=== PATIENT | male | born 2000 | race Caucasian/White ===

== ENCOUNTER 2022-07-14 09:10 | Emergency (ER) | payer SELFPAY ==
[2022-07-14 09:36] LABS: Absolute Lymphocytes (CBC) 2.8 K/uL (0.7-4.9); Hematocrit 39.3 % (39.6-49.0); MCV 94.1 fL (80-100); MPV 6.7 fL (7.6-11.3); RBC Red Blood Cell Count 4.18 M/uL (4.33-5.43)
[2022-07-14] MEDS ORDERED: MORPHINE 4 MG/ML SYR ONE (09:39)
[2022-07-14] MEDS ORDERED: ONDANSETRON 4 MG/2 ML VIAL ONE (09:40)
[2022-07-14] MEDS ORDERED: NA CHLORIDE 0.9% 1,000 ML ONE (09:40)
[2022-07-14 09:56] LABS: Albumin 3.8 g/dL (3.4-5.0); Bilirubin Total 0.3 mg/dL (0.2-1.0); Potassium 3.9 mmol/L (3.5-5.1); Protein, Total 7.3 g/dL (6.4-8.2)
--- NOTE | 2022-07-14 10:22 | RAD REPORT ---
EXAM DESCRIPTION: CTStone Protocol - 07/14/2022 9:38 am CLINICAL HISTORY: r/o renal stone COMPARISON: No comparisons TECHNIQUE: CT of the abdomen and pelvis was performed without contrast. All CT scans are performed using dose optimization technique as appropriate and may include automated exposure control or mA/KV adjustment according to patient size. FINDINGS: Lower chest: No acute abnormality. Liver: No acute abnormality or suspicious lesions. Biliary: No biliary ductal dilatation. Stomach: No significant focal abnormality. Duodenum: No significant focal abnormality. Pancreas: No significant abnormality. Spleen: No significant abnormality. Adrenal: No suspicious lesions. Kidney/ureter: No hydronephrosis. Punctate bilateral renal calculi and/or renal papillary type calcif ications. Mildly dense renal pyramids noted. Right ureteral fullness. Retroperitoneum: No retroperitoneal adenopathy. Vascular: No aneurysm. Bowel: The appendix is not visualized in its entirety. The imaged portions are normal.. Peritoneum: Small volume of free fluid is noted. Bladder: Grossly unremarkable. Reproductive: No adnexal masses. Bones: No acute fracture. Other: n/a IMPRESSION: 1. Nonobstructing punctate bilateral renal calculi. Right ureteral fullness could be sec ondary to either infection or recently passed stone. 2. Appendix only partially visualized but the visualized portion is within normal limits. Though a sm all volume of pelvic free fluid is noted which is abnormal in a male patient, no other findings are p resent to suggest acute appendicitis.
[2022-07-14 10:54] LABS: Urine Blood 3+ (Negative); Urine Glucose Negative (Negative); Urine Protein 2+ (Negative)
[2022-07-14] MEDS ORDERED: CEFTRIAXONE 1000 MG/VIAL ONE (11:17)
[2022-07-14] MEDS ORDERED: NA CHLORIDE 0.9% 100 ML ONE (11:17)
--- NOTE | 2022-07-14 11:17 | ER ---
Nurse's Notes [facility] Name: Horace Smith Age: 21 yrs Sex: Male : 2000 Arrival Date: 07/14/2022 Time: 09:11 Bed 19 Private MD: Diagnosis: Pyelonephritis acute Presentation: 07/14 09:19 Chief complaint: Patient states: Right flank pain that began yesterday, reports blood aa5 in urine today. Denies nausea/vomiting. Coronavirus screen: At this time, the client does not indicate any symptoms associated with coronavirus-19. Ebola Screen: Patient denies travel to an Ebola-affected area in the 21 days before illness onset. Initial Sepsis Screen: Does the patient meet any 2 criteria? No. Patient's initial sepsis screen is negative. Does the patient have a suspected source of infection? No. Patient's initial sepsis screen is negative. Risk Assessment: Do you want to hurt yourself or someone else? Patient reports no desire to harm self or others. Onset of symptoms was June 2022. 09:19 Method Of Arrival: Ambulatory aa5 09:19 Acuity: KATIE 3 aa5 Historical: - Allergies: 09:20 No Known Allergies; aa5 - PMHx: 09:20 None; aa5 - PSHx: 09:20 None; aa5 - Immunization history:: Adult Immunizations unknown. - Social history:: Smoking status: Patient reports the use of cigarette tobacco products, denies chronic smoking, but will smoke occasionally. Screenin:30 Abuse screen: Denies threats or abuse. jh6 09:30 Nutritional screening: No deficits noted. Tuberculosis screening: No symptoms or risk jh6 factors identified. Fall Risk None identified. Assessment: 09:32 General: Appears uncomfortable, Behavior is calm, cooperative. Pain: Complains of pain jh6 in anterior aspect of right lateral abdomen and right upper quadrant Pain does not radiate. Pain currently is 6 out of 10 on a pain scale. Quality of pain is described as aching, sharp, Pain began suddenly, Is continuous. GI: Bowel sounds Abd is soft X 4 quads. 10:30 Reassessment: Patient and/or family updated on plan of care and expected duration. Pain jh6 level reassessed. Patient is alert, oriented x 3, equal unlabored respirations, skin warm/dry/pink. Patient states feeling better. Pain: Pain currently is 2 out of 10 on a pain scale. 11:36 Reassessment: Patient and/or family updated on plan of care and expected duration. Pain jh6 level reassessed. Patient is alert, oriented x 3, equal unlabored respirations, skin warm/dry/pink. Patient denies pain at this time. Patient states feeling better. Vital Signs: 09:19 BP 102 / 85; Pulse 74; Resp 18 S; Temp 99.3(TE); Pulse Ox 100% on R/A; Height 5 ft. 5 aa5 in. (165.10 cm) (R); 09:24 Weight 56.02 kg (M); mb9 10:30 BP 108 / 64; Pulse 77; Resp 17; Pulse Ox 100% ; Pain 2/10; jh6 11:34 BP 110 / 78; Pulse 76; Resp 17; Pulse Ox 99% ; Pain 0/10; jh6 09:24 Body Mass Index 20.55 (56.02 kg, 165.10 cm) mb9 ED Course: 09:11 Patient arrived in ED. am2 09:16 [facility] jh7 09:16 Dayron Simmons MD is Attending Physician. jh7 09:19 Arm band placed on. aa5 09:20 Triage completed. aa5 09:25 Jennifer Arriaga, RN is Primary Nurse. jh6 09:25 Bed in low position. Call light in reach. Side rails up X 1. mb9 09:32 No provider procedures requiring assistance completed. Inserted saline lock: 20 gauge 6 in left antecubital area, using aseptic technique. Blood collected. 09:[address] via wheelchair. jh6 09:40 CT Stone Protocol In Process Unspecified. EDMS 11:30 IV discontinued, intact, bleeding controlled, No redness/swelling at site. Pressure jh6 dressing applied. Administered Medications: 09:44 Drug: NS 0.9% 1000 ml Route: IV; Rate: 1 bolus; Site: right antecubital; jh6 10:49 Follow up: Response: No adverse reaction; IV Status: Completed infusion jh6 09:44 Drug: Zofran (Ondansetron) 4 mg Route: IVP; Site: right antecubital; jh6 10:49 Follow up: Response: No adverse reaction; No change in condition [facility] 09:44 Drug: morphine 4 mg Route: IVP; Infused Over: 4 mins; Site: right antecubital; 6 10:48 Follow up: Response: No adverse reaction 6 11:19 Drug: Rocephin (cefTRIAXone) 1 grams Route: IV; Rate: 1 calculated rate; Site: right [facility] antecubital; 11:35 Follow up: Response: No adverse reaction; IV Status: Completed infusion 6 Medication: 11:37 VIS not applicable for this client. 6 Outcome: 11:17 Discharge ordered by . 7 11:36 Discharged to home ambulatory. 6 11:36 Condition: improved 11:36 Discharge instructions given to patient, family, Instructed on discharge instructions, Demonstrated understanding of instructions, follow-up care, medications, Prescriptions given X 3. 11:37 Patient left the ED. [facility] Addendum: 07/16/2022 11:05 Addendum: Culture Results: Positive urine culture. No further action required. Bacteria s s sensitive to prescribed antibiotic. Signatures: Dispatcher [employer] EDMS Andreina Caro RN RN aa5 Rica Davenport RN RN ss Moreno, Amanda am2 Hastedt, Jennifer, RN RN jh6 Jennifer Kelly FNP FNP 7 Bibi Soares RN RN mb9 Corrections: (The following items were deleted from the chart) 07/14 09:20 09:19 BP 102 / 85; Pulse 74bpm; Resp 18bpm; Spontaneous; Pulse Ox 100% RA; Temp 99.3F aa5 Temporal; aa5
--- NOTE | 2022-07-14 11:18 | EDPHYS ---
Physician Documentation [facility] Name: Horace Smith Age: 21 yrs Sex: Male : 2000 Arrival Date: 07/14/2022 Time: 09:11 Bed 19 Private MD: ED Physician Dayron Simmons HPI: 07/14 09:20 This 21 yrs old Male presents to ER via Ambulatory with complaints of Abdominal Pain - jh7 severe. 09:20 The patient presents with abdominal pain in the right upper quadrant, Right flank. jh7 Onset: The symptoms/episode began/occurred last night. Associated signs and symptoms: Pertinent positives: hematuria, Pertinent negatives: nausea and vomiting, fever. Pt reports RUQ pain radiating to R flank starting last night. Also reports that there was blood in his urine this morning.. Historical: - Allergies: 09:20 No Known Allergies; aa5 - PMHx: 09:20 None; aa5 - PSHx: 09:20 None; aa5 - Immunization history:: Adult Immunizations unknown. - Social history:: Smoking status: Patient reports the use of cigarette tobacco products, denies chronic smoking, but will smoke occasionally. ROS: 09:20 Constitutional: Negative for fever, chills, and weight loss, Eyes: Negative for injury, jh7 pain, redness, and discharge, ENT: Negative for injury, pain, and discharge, Cardiovascular: Negative for chest pain, palpitations, and edema, Respiratory: Negative for shortness of breath, cough, wheezing, and pleuritic chest pain, MS/Extremity: Negative for injury and deformity, Skin: Negative for injury, rash, and discoloration, Neuro: Negative for headache, weakness, numbness, tingling, and seizure. 09:20 Abdomen/GI: Positive for abdominal pain, Flank pain, Negative for nausea, vomiting, and diarrhea. 09:20 : Positive for flank pain, hematuria, Negative for penile pain, testicular pain 09:20 All other systems are negative. Exam: 09:20 Head/Face: Normocephalic, atraumatic. ENT: Nares patent. No nasal discharge, no jh7 septal abnormalities noted. Tympanic membranes are normal and external auditory canals are clear. Oropharynx with no redness, swelling, or masses, exudates, or evidence of obstruction, uvula midline. Mucous membranes moist. Neck: Trachea midline, no thyromegaly or masses palpated, and no cervical lymphadenopathy. Supple, full range of motion without nuchal rigidity, or vertebral point tenderness. No Meningismus. Cardiovascular: Regular rate and rhythm with a normal S1 and S2. No gallops, murmurs, or rubs. Normal PMI, no JVD. No pulse deficits. Respiratory: Lungs have equal breath sounds bilaterally, clear to auscultation and percussion. No rales, rhonchi or wheezes noted. No increased work of breathing, no retractions or nasal flaring. Skin: Warm, dry with normal turgor. Normal color with no rashes, no lesions, and no evidence of cellulitis. MS/ Extremity: Pulses equal, no cyanosis. Neurovascular intact. Full, normal range of motion. Neuro: Awake and alert, GCS 15, oriented to person, place, time, and situation. Motor strength 5/5 in all extremities. Sensory grossly intact. Normal gait. 09:20 Constitutional: The patient appears alert, awake, in obvious pain. 09:20 Abdomen/GI: Inspection: abdomen appears normal, Bowel sounds: normal, Palpation: severe abdominal tenderness, in the right upper quadrant. 09:20 : CVA tenderness, on the right. Vital Signs: 09:19 BP 102 / 85; Pulse 74; Resp 18 S; Temp 99.3(TE); Pulse Ox 100% on R/A; Height 5 ft. 5 aa5 in. (165.10 cm) (R); 09:24 Weight 56.02 kg (M); 9 10:30 BP 108 / 64; Pulse 77; Resp 17; Pulse Ox 100% ; Pain 2/10; jh6 11:34 BP 110 / 78; Pulse 76; Resp 17; Pulse Ox 99% ; Pain 0/10; 6 09:24 Body Mass Index 20.55 (56.02 kg, 165.10 cm) mb9 MDM: 09:17 Patient medically screened. [facility] 11:20 Differential diagnosis: appendicitis, Pyelonephritis, Nephrolithiasis. Data reviewed: [facility] vital signs, nurses notes, lab test result(s), radiologic studies, CT scan. Data interpreted: Pulse oximetry: is 99 %. Interpretation: normal. Counseling: I had a detailed discussion with the patient and/or guardian regarding: the historical points, exam findings, and any diagnostic results supporting the discharge/admit diagnosis, to return to the emergency department if symptoms worsen or persist or if there are any questions or concerns that arise at home. Response to treatment: the patient's symptoms have resolved after treatment, the patient's pain is gone. ED course: Discussed potential admission with the patient. He declined and stated he would rather go home, and would return if symptoms returned/worsened. Pt calm and stable at time of dc. 07/14 09:21 Order name: CBC with Diff; Complete Time: 09:52 [facility] 07/14 09:21 Order name: CMP; Complete Time: 09:59 [facility] 07/14 09:21 Order name: Lipase; Complete Time: 09:59 [facility] 07/14 09:21 Order name: Urine Microscopic Only; Complete Time: 12:40 [facility] 07/14 09:21 Order name: CT Stone Protocol; Complete Time: 11:05 [facility] 07/14 10:54 Order name: Urine Dipstick-Ancillary; Complete Time: 11:05 [facility] 07/14 09:21 Order name: IV Saline Lock; Complete Time: 09:32 [facility] 07/14 09:21 Order name: Labs collected and sent; Complete Time: 09:32 [facility] Administered Medications: 09:44 Drug: NS 0.9% 1000 ml Route: IV; Rate: 1 bolus; Site: right antecubital; [facility] 10:49 Follow up: Response: No adverse reaction; IV Status: Completed infusion [facility] 09:44 Drug: Zofran (Ondansetron) 4 mg Route: IVP; Site: right antecubital; [facility] 10:49 Follow up: Response: No adverse reaction; No change in condition [facility] 09:44 Drug: morphine 4 mg Route: IVP; Infused Over: 4 mins; Site: right antecubital; [facility] 10:48 Follow up: Response: No adverse reaction [facility] 11:19 Drug: Rocephin (cefTRIAXone) 1 grams Route: IV; Rate: 1 calculated rate; Site: right [facility] antecubital; 11:35 Follow up: Response: No adverse reaction; IV Status: Completed infusion [facility] Disposition Summary: 07/14/22 11:17 Discharge Ordered Location: Home [facility] Problem: new [facility] Symptoms: have improved [facility] Condition: Stable [facility] Diagnosis - Pyelonephritis acute jh7 Followup: [facility] - With: Private Physician - When: 2 - 3 days - Reason: Recheck today's complaints Discharge Instructions: - Discharge Summary Sheet [facility] - Pyelonephritis, Adult [facility] Forms: - Work release form iw - Medication Reconciliation Form [facility] - Thank You Letter [facility] - Antibiotic Education [facility] - Prescription Opioid Use [facility] Prescriptions: - Cipro 500 mg Oral Tablet - take 1 tablet by ORAL route every 12 hours for 10 days; 20 tablet; Refills: 0, [facility] Product Selection Permitted - Naprosyn 500 mg Oral Tablet - take 1 tablet by ORAL route 2 times per day take with food; 30 tablet; Refills: [facility] 0, Product Selection Permitted - Tramadol 50 mg Oral Tablet - take 1 tablet by ORAL route every 8 hours as needed; 12 tablet; Refills: 0, [facility] Product Selection Permitted Signatures: Dispatcher [employer] Andreina Morelos, RN RN aa5 Jennifer Arriaga RN RN jh6 Jennifer Kelly, TRAINER TRAINER [facility]
[2022-07-14 11:32] LABS: Urine Bacteria >50 /HPF (<20)
[2022-07-16 19:50] VITALS: TEMP 99.3
[2022-07-16 20:06] VITALS: BP 110/78; O2SAT 99
== END 2022-07-14 11:37 | disposition home or self-care (01) ==
LOC: ER 09:10
DX: N10 Acute pyelonephritis (principal); F17.210 Nicotine dependence, cigarettes, uncomplicated
CPT/HCPCS: 36415; 74176; 76377; 80053; 81003; 81015; 83690; 85025; 87077; 87086; 87088; 87186; 96361; 96365; 96375; 99284; J2405; J7030